=== PATIENT | female | born 1975 | race Caucasian/White ===

== ENCOUNTER 2024-03-18 13:26 | Emergency (ER) | payer OTHER, SELFPAY ==
--- NOTE | 2024-03-18 13:34 | ED.URI ---
HPI - URI/Sore Throat General Chief Complaint: Abdominal Pain Stated Complaint: Headache/Abdominal Pain/Diarrhea Time Seen by Provider: 03/18/24 14:01 Source: patient and RN notes reviewed Mode of arrival: ambulatory Limitations: no limitations History of Present Illness HPI Narrative: 48-year-old female presents with concern for abdominal cramping, nausea, vomiting, diarrhea that started this morning. She also reports headache. She denies fever, body aches, chills, sweats. 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 MD elicited complaint: other (headache) Related Data Home Medications Medication Instructions Recorded Confirmed atorvastatin 40 mg tablet 40 mg PO DAILY 03/18/24 03/18/24 clopidogrel 75 mg tablet 75 mg PO DAILY 03/18/24 03/18/24 escitalopram oxalate 10 mg tablet 10 mg PO DAILY 03/18/24 03/18/24 gabapentin 800 mg tablet 800 mg PO DAILY 03/18/24 03/18/24 lisinopril 10 mg tablet 10 mg PO DAILY 03/18/24 03/18/24 Allergies Allergy/AdvReac Type Severity Reaction Status Date / Time Penicillins Allergy Rash Verified 03/18/24 13:56 aspirin AdvReac Other Verified 03/18/24 13:57 Review of Systems Review of Systems: CONSTITUTIONAL: Denies malaise, chills, sweats, or fever. EYES: Denies visual changes, redness, or discharge. ENT: Reports rhinorrhea, congestion, sinus pain, otalgia and sore throat. CARDIOVASCULAR: Denies chest pain, palpitations, or edema. RESPIRATORY: Reports cough. Denies dyspnea. GASTROINTESTINAL: Denies abdominal pain. Reports abdominal cramping, nausea, vomiting, diarrhea SKIN: Denies rash or itching. MUSCULOSKELETAL: Denies myalgia. NEUROLOGIC: Reports headache. All systems reviewed & are unremarkable except as noted in HPI and below PMFSH Comments At time of signature, agree with nursing past medical, surgical, social and family history. There is no relevant family history pertinent to the presenting complaint Exam Narrative: GENERAL: Well-appearing, well-nourished, and in no acute distress. HEAD: Normocephalic EYES: PERRLA, conjunctivae clear ENT: Nares clear, turbinates edematous and erythematous, clear discharge. Mucous membranes moist. TM pearly freedman with dull light reflex bilaterally; no tragal tenderness. Oropharynx not erythematous without lesions. Tonsils not enlarged and without exudate, no drooling, no hoarseness, no trismus, uvula midline. NECK: Supple. No lymphadenopathy CHEST: Clear to auscultation, breath sounds equal. No wheezing, rhonchi, rales, or stridor. No respiratory distress, speaks in full sentences. HEART: Regular rate and rhythm. No murmur heard. ABD: Normal bowel sounds, nontender, obese SKIN: Warm, dry, no rash. NEURO: Alert and oriented x3. PSYCH: Normal mood and affect Course Course Emergency Course: Patient is aware of diagnosis, understands and agrees to treatment plan. Anticipatory guidance given. Patient agrees to follow-up as directed and is aware of reasons to seek care at the emergency department. Portions of this record may have been created with voice recognition software Level of Care: Express Care Visit Vital Signs Vital signs: Reviewed. MDM - URI/Sore Throat MDM Narrative Medical decision making narrative: I evaluated this patient in the express care. History is obtained from patient who is an independent historian and physical exam was performed.? Available medical records were reviewed. ? Exam findings and relevant testing show no acute concerns or changes; patient is non-toxic appearing and is in no distress. ? Differential diagnosis and treatment plan were discussed with the patient. Patient agrees with discussion and after shared medical decision making agrees with plan of care. All questions were answered to the patient's satisfaction. Patient is appropriate for outpatient treatment and follow-up. Lab Data Attestation: I reviewed the patient's lab results. Critical Care Time Critical Care Time Critical Care
[2024-03-18 13:47] VITALS: BP 140/86; PULSE 64; RESP 18; TEMP 36.6; O2SAT 99
== END 2024-03-18 14:20 | disposition home or self-care (01) ==
PROVIDERS: Emergency Provider Nurse Practitioner
DX: R11.2 Nausea with vomiting, unspecified (principal); R19.7 Diarrhea, unspecified; E78.00 Pure hypercholesterolemia, unspecified; I10 Essential (primary) hypertension; G62.9 Polyneuropathy, unspecified; Z85.6 Personal history of leukemia; Z86.73 Personal history of transient ischemic attack (TIA), and cerebral infarction without residual deficits
CPT/HCPCS: 99213; G0463